=== PATIENT | female | born 1995 | race Caucasian/White ===

== ENCOUNTER 2019-11-26 12:40 | Emergency (ER) | payer OTHER, BC, SELFPAY ==
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
[2019-11-26 12:39] VITALS: BP 143/100; PULSE 79; RESP 17; TEMP 36.1; O2SAT 100
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
[2019-11-26] MEDS: ACETAMINOPHEN 500 MG TABLET 1000 MG (14:23)
[2019-11-26] MEDS: CYCLOBENZAPRINE HCL 10 MG TABLET (14:23)
[2019-11-26 14:24] VITALS: BP 126/88; PULSE 88; RESP 17; O2SAT 97
--- NOTE | 2019-11-26 14:25 | PC.NURSE ---
vrbo tylenol 1000mg, flexeril [address] romeo
== END 2019-11-26 15:08 | disposition home or self-care (01) ==
PROVIDERS: Emergency Provider Emergency Medicine; PCP Obstetrics & Gynecology
DX: S09.90XA Unspecified injury of head, initial encounter (principal); J32.9 Chronic sinusitis, unspecified; V49.40XA Driver injured in collision with unspecified motor vehicles in traffic accident, initial encounter
CPT/HCPCS: 70450; 99284; A9270

== ENCOUNTER 2020-12-29 10:51 | Emergency (ER) | payer BC, SELFPAY ==
[2020-12-29 11:06] VITALS: BP 114/64; PULSE 85; RESP 18; TEMP 36.3; O2SAT 98
[2020-12-29 11:07] VITALS: BP 114/64; PULSE 85; RESP 18; TEMP 36.3; O2SAT 98
--- NOTE | 2020-12-29 11:23 | ED.FEMALEGU ---
HPI - Female Genitourinary General Chief complaint: Urogenital-Female Stated complaint: uti History of Present Illness HPI Narrative: This is a 25-year-old female that presented to urgent care with complaints of burning ,frequency, and urgency for the last 4 days. Patient does have a history of urinary tract infection. She has been taking Azo at home with no relief. The patient denies SOB, CP, palpitation, extremity numbness, lightheadedness, dizziness, abdominal pain, hematuria constipation, vaginal discharge, possible STD ,diarrhea, chills, or fever. Patient's UA culture negative will treat office symptoms along MD elicited complaint: dysuria and UTI Related Data Allergies Allergy/AdvReac Type Severity Reaction Status Date / Time No Known Allergies Allergy Verified 12/29/20 10:55 Review of Systems Review of Systems: A 14 organ system Review of Systems was performed and pertinent positives included in the HPI, otherwise remaining ROS is negative. [facility] Past Medical History Medical History Anxiety Depression Family History Family History (Updated 12/29/20 @ 11:28 by MIRANDA Ascencio) Other Family history non-contributory Social History Social History Alcohol intake: current Substance use: current Substance use type: marijuana Exam Narrative: GENERAL: This is a well-nourished, well-developed patient, in no apparent distress. HEAD: normocephalic, atraumatic. EYES: PERRL. Sclera clear/white. Vision is grossly intact. EARS: External ears normal, auditory canals clear and without drainage, TMs normal without perforation. Hearing grossly intact. NOSE: External nose normal with no obvious nasal discharge, nares without redness, no rhinorrhea. THROAT: Mucous membranes moist, posterior pharynx clear. NECK: Neck supple, non-tender without lymphadenopathy, masses or thyromegaly. CARDIOVASCULAR: Regular rate and rhythm without murmurs, gallops, or rubs. RESPIRATORY: Clear to auscultation. Breath sounds equal bilaterally. No wheezes, rales, or rhonchi. GASTROINTESTINAL: Abdomen soft, non-tender, nondistended. Bowel sounds are active. No hepato-splenomegaly, or palpable masses. No guarding. CVA negative SKIN: warm, intact with no suspicious lesions or rash, good texture and turgor. NEURO: awake, alert, and oriented to person, place and time. There were no obvious focal neurologic abnormalities. Steady gait EXTREMITIES: Normal range of motion. No edema. No calf tenderness. Negative Homans sign bilaterally. BACK: Nontender without deformity or crepitance. No flank tenderness. Course Course Emergency Course: Patient was discharged with Bactrim x7 days. UA culture pending. Patient treated office symptoms along Vital Signs Vital signs: Vital Signs Temperature 97.3 F L 12/29/20 11:06 Pulse Rate 85 12/29/20 11:06 Respiratory Rate 18 12/29/20 11:06 Blood Pressure 114/64 12/29/20 11:06 Pulse Oximetry 98 12/29/20 11:06 Temperature 97.3 F L 12/29/20 11:07 Pulse Rate 85 12/29/20 11:07 Respiratory Rate 18 12/29/20 11:07 Blood Pressure 114/64 12/29/20 11:07 Pulse Oximetry 98 12/29/20 11:07 MDM - Female Genitourinary Differential Diagnosis Differential diagnosis: Likely urinary tract infection, bacterial vaginosis and vaginitis Lab Data Labs: Urine Glucose Negative Reference Range: Negative Urine Bilirubin Negative Reference Range: Negative Urine Ketone Negative Reference Range: Negative Urine Specific Theodore 1.030 Reference Range:1.001-1.035 Urine Blood 3+
== END 2020-12-29 11:37 | disposition home or self-care (01) ==
PROVIDERS: Emergency Provider Nurse Practitioner
DX: N39.0 Urinary tract infection, site not specified (principal)
CPT/HCPCS: 81003; 87086; 99213; G0463

== ENCOUNTER 2021-02-10 18:00 | Emergency (ER) | payer BC, SELFPAY ==
[2021-02-10 18:20] VITALS: BP 109/65; PULSE 90; RESP 16; TEMP 36.8; O2SAT 98
--- NOTE | 2021-02-10 18:36 | ED.FEMALEGU ---
HPI - Female Genitourinary General Chief complaint: Urogenital-Female Stated complaint: STD Time Seen by Provider: 02/10/21 18:36 Source: patient Mode of arrival: ambulatory Limitations: no limitations History of Present Illness HPI Narrative: Talia Hernandez is a 25 yo female with no PMH who comes to the [facility] after finding her fianc? in bed with a stripper in the last couple of days. States she has had cloudy urine is concerned about potential STD and she does not know how long he has been cheating on her. She is being tested for STDs and UA done-probably not complaining of any abdominal pain or abnormal discharge Related Data Allergies Allergy/AdvReac Type Severity Reaction Status Date / Time No Known Allergies Allergy Verified 02/10/21 18:23 Review of Systems Review of Systems: CONSTITUTIONAL: Denies fever, chills, sweats. EYES: Denies visual changes, redness, discharge. ENT: Denies rhinorrhea, congestion, sore throat, otalgia. CARDIOVASCULAR: Denies chest pain, palpitations, edema. RESPIRATORY: Denies dyspnea, wheezing, cough GASTROINTESTINAL: Denies abdominal pain, nausea, vomiting, diarrhea. GENITOURINARY: Denies dysuria, hematuria, abnormal discharge SKIN: Denies rash or itching. NEUROLOGIC: Denies numbness, or focal weakness. PSYCHIATRIC: Denies anxiety or depression. STD check after finding fianc? with another woman PMFSH Past Medical History Medical History Anxiety Depression Family History Family History Other Family history non-contributory Social History Social History Alcohol intake: current Substance use: current Substance use type: marijuana Comments At time of signature, I agree with nursing past medical, surgical, social and family history. There is no relevant family history pertinent to the presenting complaint. Exam Narrative: GENERAL: This is a well-nourished, well-developed patient, in mild distress. HEAD: normocephalic, atraumatic. EYES: Sclera clear/white. Vision is grossly intact. EARS: External ears normal, auditory canals clear and without drainage, Hearing grossly intact. NOSE: External nose normal without nasal discharge, nares without redness, no rhinorrhea. THROAT: Mucous membranes moist, NECK: Neck supple, non-tender CARDIOVASCULAR: Regular rate and rhythm without murmurs, gallops, or rubs. RESPIRATORY: Clear to auscultation. Breath sounds equal bilaterally. No wheezes, rales, or rhonchi. GASTROINTESTINAL: Abdomen soft, non-tender, SKIN: warm, intact with no suspicious lesions or rash, good texture and turgor. NEURO: awake, alert, and oriented to person, place and time. There were no obvious focal neurologic abnormalities. EXTREMITIES: Normal range of motion. BACK: Nontender without deformity Course Course Emergency Course: Patient here because of cloudy urine and finding fianc? with another woman and so he wants to be checked for STDs UA shows trace leukocyte esterase we will treat Given Rocephin and doxycycline x1 week-urine specimen sent for analysis Vital Signs Vital signs: Vital Signs Temperature 98.3 F 02/10/21 18:20 Pulse Rate 90 02/10/21 18:20 Respiratory Rate 16 02/10/21 18:20 Blood Pressure 109/65 02/10/21 18:20 Pulse Oximetry 98 02/10/21 18:20 Temperature 98.3 F 02/10/21 18:20 Pulse Rate 90 02/10/21 18:20 Respiratory Rate 16 02/10/21 18:20 Blood Pressure 109/65 02/10/21 18:20 Pulse Oximetry 98 02/10/21 18:20 MDM - Female Genitourinary Differential Diagnosis Differential diagnosis: Likely urinary tract infection and other (GC chlamydia versus vaginitis versus bacterial vaginosis) Lab Data Labs: Lab Results 02/10/21 Range/Units 18:30 C.trachomatis RNA (TMA) Pending N.gonorrhoeae RNA (TMA) Pending T. vaginalis Amp RNA Pend
[2021-02-10] MEDS: cefTRIAXone 500 MG VIAL IM (18:57)
[2021-02-10] MEDS: LIDOCAINE HCL 1% LOCAL INJ 20 ML VIAL 2.5 ML INFILTRATE (18:57)
== END 2021-02-10 19:20 | disposition home or self-care (01) ==
PROVIDERS: Emergency Provider Nurse Practitioner
DX: Z20.2 Contact with and (suspected) exposure to infections with a predominantly sexual mode of transmission (principal); N30.01 Acute cystitis with hematuria
CPT/HCPCS: 81003; 87086; 87088; 87491; 87591; 87661; 96372; 99214; G0463; J0696

== ENCOUNTER 2021-06-19 07:40 | Emergency (ER) | payer BC, SELFPAY ==
[2021-06-19] VITALS (14 sets, daily range): BP systolic 83–112; BP diastolic 60–79; PULSE 60–93; RESP 10–18; TEMP 37.1; O2SAT 98–100
--- NOTE | ~2021-06-19 | XR_ITS ---
EXAMINATION: XR chest 1V portable EXAM DATE: 06/19/2021 08:03 INDICATION: TECHNIQUE: Portable AP frontal chest x-ray was obtained. Comparison is made to prior examination from 12/16/2018. FINDINGS: The lungs are clear. There are no pleural effusions. The cardiomediastinal silhouette is within normal limits. There is no pneumothorax suspected. The bones and soft tissues are unremarkab le. IMPRESSION: No acute cardiopulmonary findings. Reviewed, dictated and finalized at location A. DCAST CHECKER
--- NOTE | 2021-06-19 07:49 | PC.NURSE ---
Dr. Whelan at bedside to assess patient.
[2021-06-19] MEDS: SODIUM CHLORIDE 0.9% IV 1,000 ML 999 ML IV CONT (08:07)
[2021-06-19] MEDS: KETOROLAC 30 MG/ML VIAL (*BKC) IV PUSH (08:09)
[2021-06-19 08:20] LABS: Basophils Percent Auto 0.5 % (0.2-1.2); Eosinophils Absolute Auto 0.3 K/mm3 (0-0.3); Eosinophils Percent Auto 5.2 % (0-4.4); Hematocrit 43.2 % (37.0-47.0); Hemoglobin 14.6 g/dL (12.0-15.0); Immature Granulocyte Absolute 0.01 K/mm3 (0.00-0.031); Immature Granulocyte Percent A 0.2 % (0-0.5); Lymphocytes Absolute Auto 0.91 K/mm3 (0.9-3.2); Lymphocytes Percent Auto 16.4 % (18.3-44.2); Mean Corpuscular HGB Conc 33.8 g/dl (32-36); Mean Corpuscular Hemoglobin 30.2 pg (26-34); Mean Corpuscular Volume 89.4 fl (80-100); Mean Platelet Volume 9.5 fl (7.4-10.4); Monocytes Absolute Auto 0.5 K/mm3 (0.1-0.6); Monocytes Percent Auto 8.1 % (2.6-8.5); Neutrophils Absolute Auto 3.9 K/mm3 (1.3-6.7); Neutrophils Percent Auto 69.6 % (45.5-73.1); Platelet Count Result 258 k/mm3 (150-375); Red Blood Count 4.83 M/mm3 (4.2-5.4); Red Cell Distribution Width 12.8 % (11.5-14.5); White Blood Count 5.6 K/mm3 (4.5-10.0)
[2021-06-19] MEDS: ONDANSETRON INJ 4 MG/2 ML VIAL IV PUSH (08:26)
[2021-06-19 08:28] LABS: Anion Gap 5 mmol/L (8-16); Blood Urea Nitrogen 11 mg/dL (7-17); Calcium 8.6 mg/dL (8.4-10.2); Carbon Dioxide 25 mmol/L (22-30); Chloride 105 mmol/L (98-107); Estimated CRCL calculation 117 ml/min; Estimated Glomerular Filt Rate > 60; Glucose 102 mg/dL (65-110); Potassium 4.2 mmol/L (3.4-5.0); Sodium 135 mmol/L (137-145)
[2021-06-19 08:32] LABS: D Dimer 0.46 ug/mL (<0.48)
--- NOTE | 2021-06-19 10:00 | ED.GENADULT ---
HPI - General Adult General Chief complaint: Headache Stated complaint: Multiple Complaints Time Seen by Provider: 06/19/21 07:46 History of Present Illness HPI narrative: Patient is a 25-year-old female who presents ER with multiple issues. Patient works at a local hospital. Over the last day she has developed fever as well as body aches. She has had some cough. She has mild headache. She is also been having diarrhea. No loss of taste or smell. She has not been tested for Covid. She is not taking any medications to help with her symptoms. Related Data Allergies Allergy/AdvReac Type Severity Reaction Status Date / Time No Known Allergies Allergy Verified 02/10/21 18:23 Review of Systems Review of Systems: All systems reviewed & are unremarkable except as noted in HPI and below Constitutional: Constitutional: Denies chills, Reports fatigue and Reports fever(s) ENT: Reports nasal congestion and Reports sore throat Cardiovascular: Cardiovascular: Denies chest pain, Denies rapid heart rate and Denies radiating jaw, neck or arm pain Respiratory: Respiratory: Denies chest congestion, Reports cough, Reports dyspnea and Denies wheezing Gastrointestinal: Gastrointestinal: Denies abdominal pain, Reports diarrhea, Reports nausea and Denies vomiting Genitourinary: Genitourinary: Denies nocturia, Denies dysuria and Denies flank pain Neurologic: Reports headache(s), Denies focal weakness and Denies numbness PMFSH Past Medical History Medical History (Updated 06/19/21 @ 11:02 by Kana Whelan MD) Anxiety Depression Surgical History Surgical History (Updated 06/19/21 @ 10:02 by Kana Whelan MD) No pertinent past surgical history Family History Family History Other Family history non-contributory Social History Social History Alcohol intake: current Substance use: current Substance use type: marijuana Exam Narrative: GENERAL: Well-appearing, well-nourished, and in no acute distress. HEAD: Normocephalic, atraumatic. ENT: Mucous membranes moist. CHEST: Clear to auscultation. No respiratory distress. HEART: Regular rate and rhythm. Normal peripheral pulses. ABDOMEN: Soft, nontender, nondistended. EXTREMITIES: Normal range of motion. No edema. SKIN: Warm, dry, no rash. NEURO: Alert and oriented x3. PSYCH: Normal mood and affect. Course Course Emergency Course: Pain decreased after Tylenol and Toradol. Informed results. Discharge home. Vital Signs Vital signs: Vital Signs Temperature 98.8 F 06/19/21 08:13 Pulse Rate 88 06/19/21 08:13 Respiratory Rate 12 06/19/21 08:13 Blood Pressure 112/79 06/19/21 08:13 Pulse Oximetry 98 06/19/21 08:13 Temperature 98.8 F 06/19/21 08:13 Pulse Rate 85 06/19/21 10:46 Respiratory Rate 14 06/19/21 10:46 Blood Pressure 109/70 06/19/21 10:46 Pulse Oximetry 100 06/19/21 10:46 Medical Decision Making Vital Signs Vital Signs: Vital Signs Temperature 98.8 F 06/19/21 08:13 Pulse Rate 88 06/19/21 08:13 Respiratory Rate 12 06/19/21 08:13 Blood Pressure 112/79 06/19/21 08:13 Pulse Oximetry 98 06/19/21 08:13 Temperature 98.8 F 06/19/21 08:13 Pulse Rate 85 06/19/21 10:46 Respiratory Rate 14 06/19/21 10:46 Blood Pressure 109/70 06/19/21 10:46 Pulse Oximetry 100 06/19/21 10:46 Lab Data Result diagrams: 06/19/21 07:59 06/19/21 07:59 Labs: Lab Results 06/19/21 06/19/21 06/19/21 Range/Units 07:59 07:59 07:59 WBC 5.6 (4.5-10.0) K/mm3 RBC 4.83 (4.2-5.4) M/mm3 Hgb 14.6 (12.0-15.0) g/dL Hct 43.2 (37.0-47.0) % MCV 89.4 (80-100) fl MCH 30.2 (26-34) pg MCHC 33.8 (32-36) g/dl RDW 12.8 (11.5-14.5) % Plt Count 258 (150-375) k/mm3 MPV 9.5 (7.4-10.4) fl Immature Gran % (Auto) 0.2 (0-0.5) %
--- NOTE | 2021-06-19 10:29 | PC.NURSE ---
Pt resting in stretcher. Tylenol infusion complete. Pt reports some improvement in [place] with current pain 09/04. VSS. Awaiting disposition. Will continue to monitor.
[2021-06-19 17:34] LABS: SARS-CoV-2 RNA PCR Negative
== END 2021-06-19 11:25 | disposition home or self-care (01) ==
PROVIDERS: Emergency Provider Emergency Medicine
DX: B34.9 Viral infection, unspecified (principal); Z20.822 Contact with and (suspected) exposure to COVID-19
CPT/HCPCS: 36415; 71045; 80048; 85025; 85380; 96361; 96365; 96375; 99284; C9803; J0131; J1885; J2405; J7030; U0003; U0005

== ENCOUNTER 2021-08-20 09:03 | Outpatient (CLI) | payer BC, SELFPAY ==
--- NOTE | ~2021-08-20 | US_ITS ---
EXAMINATION: US OB <= 14 weeks fetus DATE: 08/20/2021 09:38 INDICATION: Vaginal bleeding during first trimester TECHNIQUE: Real-time pelvic ultrasound utilizing both a transvaginal and transabdominal probe was pe rformed. The interpreting radiologist was not present for the study. COMPARISON: None. FINDINGS: The uterus measures 13.0 x 8.2 x 5.9 cm. There is an intrauterine gestational sac.A single fetus is identified. The crown rump length measures 2.6 cm, which correlates with an estimated gestational age of 9 weeks and 2 days. heart motion is identified measuring 180 beats per minute (bpm) by M-mo de Doppler. There is a 2.5 x 1.6 x 1.5 cm anechoic/hypoechoic subchorionic hematoma along the right f undal margin of the gestational sac. The right ovary measures 2.7 x 2.5 x 2.0 cm. The left ovary measures 2.7 x 1.9 x 1.9 cm. Vascular sia w identified at both ovaries on color Doppler There is no free fluid in the pelvis. IMPRESSION: 1. Single living fetus with heart rate of 180 bpm. 2. Gestational age by ultrasound of 9 weeks 2 day(s) +/- 6 day(s) with ultrasound estimated date of delivery (CONI) of 03/23/2022. 3. Small subchorionic hematoma. Reviewed, dictated and finalized at location B. IMPRESSION: 1. Single living fetus with heart rate of 180 bpm. 2. Gestational age by ultrasound of 9 weeks 2 day(s) +/- 6 day(s) with ultraso und estimated date of delivery (CONI) of 03/23/2022. 3. Small subchorionic hematoma.
== END 2021-08-20 09:04 | disposition home or self-care (01) ==
LOC: ANHIMG 09:07
PROVIDERS: Visit Provider Obstetrics & Gynecology
DX: O20.0 Threatened abortion (principal); Z3A.00 Weeks of gestation of pregnancy not specified
CPT/HCPCS: 76801

== ENCOUNTER 2021-09-06 10:30 | Outpatient (CLI) | payer BC, SELFPAY ==
--- NOTE | ~2021-09-06 | US_ITS ---
EXAMINATION: US OB <= 14 weeks fetus DATE: 09/06/2021 11:20 INDICATION: Threatened . Subchorionic hematoma. TECHNIQUE: Real-time pelvic ultrasound utilizing transabdominal probe was performed. The pippa perez radiologist was not present for the study. COMPARISON: None. FINDINGS: There is a single living fetus with crown rump length measuring 5.2 cm which is concordant within 1 d ay of the previously estimated gestational age of 11 weeks and 5 days. heart motion is identifi ed measuring 148 beats per minute (bpm) by M-mode Doppler. No significant change in a small subchorio robert hematoma at the fundus which measures 2.8 x 1.0 x 2.3 cm, previously 2.5 x 1.4 x 1.6. Although no t identified and specifically imaged and measured by the logistics clerk, and the cine images there appea rs to be a second small subchorionic hematoma measuring 3.0 x 0.6 cm towards the inferior cervical si de of the gestational sac. The right ovary measures 2.8 x 1.6 x 2.3 cm. The left ovary measures 2.8 x 2.2 x 1.5 cm. Vascular sia w identified in both ovaries on color Doppler. There is no free fluid in the pelvis. IMPRESSION: 1. Single living fetus with heart rate of 148 bpm. 2. [place]-rump length of 5.2 cm which is concordant within 1 day of the previously estimated gestation al age by ultrasound of 11 weeks 5 day(s) with ultrasound estimated date of delivery (CONI) of 022. 3. Unchanged small subchorionic hematoma near the fundus with second new small subchorionic hematoma along the cervical side of the gestational sac. Reviewed, dictated and finalized at location A. IMPRESSION: 1. Single living fetus with heart rate of 148 bpm. 2. [place]-rump length of 5.2 cm which is concordant within 1 day of the previous ly estimated gestational age by ultrasound of 11 weeks 5 day(s) with ultrasound estimated date of delivery (CONI) of 03/23/2022. 3. Unchanged small subchorionic hematoma near the fundus with second new small subchorionic hematoma along the cervical side of the gestational sac.
== END 2021-09-06 10:31 | disposition home or self-care (01) ==
PROVIDERS: Visit Provider Obstetrics & Gynecology
DX: O20.0 Threatened abortion (principal); Z3A.11 11 weeks gestation of pregnancy
CPT/HCPCS: 76801

== ENCOUNTER 2021-10-01 14:46 | Outpatient (CLI) | payer BC, SELFPAY ==
[2021-10-01 15:37] LABS: Basophils Absolute Auto 0.1 K/mm3 (0.0-0.1); Basophils Percent Auto 0.5 % (0.2-1.2); Eosinophils Absolute Auto 0.2 K/mm3 (0-0.3); Eosinophils Percent Auto 2.2 % (0-4.4); Hematocrit 36.9 % (37.0-47.0); Hemoglobin 12.5 g/dL (12.0-15.0); Immature Granulocyte Absolute 0.05 K/mm3 (0.00-0.031); Immature Granulocyte Percent A 0.5 % (0-0.5); Lymphocytes Absolute Auto 1.74 K/mm3 (0.9-3.2); Lymphocytes Percent Auto 15.9 % (18.3-44.2); Mean Corpuscular HGB Conc 33.9 g/dl (32-36); Mean Corpuscular Volume 85.6 fl (80-100); Mean Platelet Volume 10.1 fl (7.4-10.4); Monocytes Absolute Auto 0.7 K/mm3 (0.1-0.6); Monocytes Percent Auto 6.1 % (2.6-8.5); Neutrophils Absolute Auto 8.2 K/mm3 (1.3-6.7); Neutrophils Percent Auto 74.8 % (45.5-73.1); Platelet Count Result 292 k/mm3 (150-375); Red Blood Count 4.31 M/mm3 (4.2-5.4); Red Cell Distribution Width 12.8 % (11.5-14.5)
[2021-10-01 16:35] LABS: HIV 1/2 Ab P24 Ag Result Negative (Negative)
[2021-10-01 16:49] LABS: Hepatitis B Surface Antigen Negative (Negative)
[2021-10-02 14:16] LABS: Rapid Plasma Reagin Non-Reactive (NonReactive)
[2021-10-05 16:56] LABS: CMV IgG Antibody <0.60 U/mL (<0.60)
== END 2021-10-01 14:47 | disposition home or self-care (01) ==
LOC: ANHLAB 14:48
PROVIDERS: Visit Provider Obstetrics & Gynecology
DX: Z34.90 Encounter for supervision of normal pregnancy, unspecified, unspecified trimester (principal); Z3A.00 Weeks of gestation of pregnancy not specified
CPT/HCPCS: 36415; 85025; 86592; 86644; 86703; 86747; 86762; 86787; 86850; 86900; 86901; 87086; 87088; 87340; G0432

== ENCOUNTER 2021-11-19 12:35 | Outpatient (CLI) | payer OTHER, SELFPAY | END 2021-11-19 12:36 | disposition home or self-care (01) | LOC: ANHLAB 12:36 | PROVIDERS: Visit Provider Obstetrics & Gynecology | DX: O23.40 Unspecified infection of urinary tract in pregnancy, unspecified trimester (principal); Z3A.00 Weeks of gestation of pregnancy not specified | CPT/HCPCS: 87086; 87088 ==

== ENCOUNTER 2021-12-29 10:49 | Outpatient (CLI) | payer OTHER, SELFPAY ==
[2021-12-29 12:03] LABS: Basophils Absolute Auto 0.1 K/mm3 (0.0-0.1); Basophils Percent Auto 0.8 % (0.2-1.2); Eosinophils Absolute Auto 0.2 K/mm3 (0-0.3); Eosinophils Percent Auto 2.5 % (0-4.4); Hematocrit 35.2 % (37.0-47.0); Hemoglobin 11.6 g/dL (12.0-15.0); Immature Granulocyte Absolute 0.07 K/mm3 (0.00-0.031); Immature Granulocyte Percent A 0.9 % (0-0.5); Lymphocytes Absolute Auto 1.31 K/mm3 (0.9-3.2); Lymphocytes Percent Auto 16.6 % (18.3-44.2); Mean Corpuscular Hemoglobin 28.9 pg (26-34); Mean Corpuscular Volume 87.6 fl (80-100); Mean Platelet Volume 9.1 fl (7.4-10.4); Monocytes Absolute Auto 0.6 K/mm3 (0.1-0.6); Monocytes Percent Auto 7.7 % (2.6-8.5); Neutrophils Absolute Auto 5.7 K/mm3 (1.3-6.7); Neutrophils Percent Auto 71.5 % (45.5-73.1); Platelet Count Result 255 k/mm3 (150-375); Red Blood Count 4.02 M/mm3 (4.2-5.4); Red Cell Distribution Width 13.4 % (11.5-14.5); White Blood Count 7.9 K/mm3 (4.5-10.0)
[2021-12-29 12:14] LABS: Glucose 1 Hour PP 50gm Dose 115 mg/dL
[2021-12-29 12:53] LABS: HIV 1/2 Ab P24 Ag Result Negative (Negative)
== END 2021-12-29 10:50 | disposition home or self-care (01) ==
LOC: ANHLAB 10:51
PROVIDERS: Visit Provider Obstetrics & Gynecology
DX: Z34.90 Encounter for supervision of normal pregnancy, unspecified, unspecified trimester (principal); R35.0 Frequency of micturition; Z3A.00 Weeks of gestation of pregnancy not specified
CPT/HCPCS: 36415; 82947; 85025; 86703; 87086; 87088; G0432

== ENCOUNTER 2022-01-19 22:01 | Observation (INO) | payer OTHER, SELFPAY ==
[2022-01-19] VITALS (13 sets, daily range): BP systolic 110–117; BP diastolic 69–70; PULSE 70–103; O2SAT 93–100; BMI 26.2
--- NOTE | 2022-01-19 22:38 | PC.NURSE ---
[phone] Charles through the answering service.
--- NOTE | 2022-01-19 22:43 | PC.NURSE ---
Dr. Charles responded to page. report given. order received to give Terbutaline up to 3 doses and check cervix. will continue with oral hydrations and monitor. will call if questions/concerns.
[2022-01-19] MEDS: TERBUTALINE SULFATE 1 MG/ML VIAL 0.25 MG SUB-Q (22:55)
--- NOTE | 2022-01-19 23:51 | OBADM ---
This patient, Talia Hernandez, admitted to the OB room OB Post 115 for observation. Patient/family oriented to hospital policies and general routines including ID bracelet, bed and alarms, visiting hours, pain management, procedures, bathroom and other care routines, personal items, smoking policy, room service/diet, and visiting hours. Patient/Family are encouraged to report perceived risks to care and to ask questions if they do not understand what they are told or what they should do.
--- NOTE | 2022-01-23 07:23 | PM.OBTRLD ---
OB - Triage/Final Diagnosis Visit Information Reason for evaluation: threatened labor Comments/Additional reasons for admission: I have assessed the risk for this patient, Talia Hernandez, and determined that she would benefit from observation care.
== END 2022-01-20 00:06 | disposition home or self-care (01) ==
PROVIDERS: Admitting Provider Obstetrics & Gynecology; Visit Provider Obstetrics & Gynecology
DX: O47.03 False labor before 37 completed weeks of gestation, third trimester (principal); Z3A.31 31 weeks gestation of pregnancy
CPT/HCPCS: 96372; G0378; G0379; J3105

== ENCOUNTER 2022-02-27 18:54 | Outpatient (RCR) | payer OTHER, SELFPAY ==
--- NOTE | 2022-02-27 20:24 | PC.NURSE ---
2008- called Dr. Vallejo- pt came in with c/o DFM . FHT reviewed. some contractions noted at beginning of tracing, resolved with PO fluids none felt by pt. order received to d/c pt home with instructions on when to call or return to L&D.
--- NOTE | 2022-02-28 07:53 | PM.OBTRLD ---
OB - Triage/Final Diagnosis Visit Information Date of evaluation: 02/27/22 Reason for evaluation: decreased movement Comments/Additional reasons for admission: I have assessed the risk for this patient, Talia Haris Johnsonbetzy, and determined that she would benefit from observation care.
== END 2022-03-29 07:41 | disposition home or self-care (01) ==
LOC: ANHOBOP 18:54
PROVIDERS: Visit Provider Obstetrics & Gynecology
DX: O36.8130 Decreased fetal movements, third trimester, not applicable or unspecified (principal); Z3A.36 36 weeks gestation of pregnancy
CPT/HCPCS: 59025

== ENCOUNTER 2022-03-07 08:08 | Emergency (ER) | payer OTHER, SELFPAY ==
--- NOTE | 2022-03-07 08:10 | ED.URI ---
HPI - URI/Sore Throat General Chief Complaint: Upper Respiratory Infection Stated Complaint: uri Time Seen by Provider: 03/07/22 08:10 Source: patient Mode of arrival: ambulatory Limitations: no limitations History of Present Illness HPI Narrative: Talia is a 26-year-old female patient presenting to clinic today with complaints of possible upper respiratory infection X2 days. She report no fever or chills. States she has runny nose, cough, congestion with green nasal drainage. Patient is 37 weeks and is to be induced in 12 days MD elicited complaint: sore throat and nasal congestion Related Data Home Medications Medication Instructions Recorded Confirmed [id number] fum 65 mg 1 pkg PO DAILY 08/09/21 03/07/22 iron-folic acid 1 mg-dha 250 mg oral amara Allergies Allergy/AdvReac Type Severity Reaction Status Date / Time No Known Allergies Allergy Verified 03/06/22 15:53 Review of Systems Review of Systems: Pertinent positives per HPI. Patient denies any fever, chills, rash, headache, visual changes, dizziness, cough, shortness of breath, chest pain, palpitations, nausea, vomiting, diarrhea, constipation, abdominal pain, or any urinary issues. [facility] Past Medical History Medical History Anxiety Depression Encounter for screening examination for sexually transmitted disease Suppression of menstruation Surgical History Surgical History History of gynecological procedure LEEP History of tonsillectomy No pertinent past surgical history Family History Family History Grandparent Diabetes mellitus Acute myocardial infarction Hypertension Chronic obstructive pulmonary disease Other Family history non-contributory Social History Social History Smoking status: Former smoker Tobacco type: cigarettes Smoking end date: 05/30/21 Alcohol intake: current Alcohol use details: casual Substance use: current Substance use type: marijuana Other substance usage details: daily Last use: LAST TIME 02/18/22 Additional living arrangements comments: single 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 There is no relevant family history pertinent to the patient complaint. Exam Narrative: General: Well-developed, well nourished, in no apparent distress Head: Normocephalic, atraumatic Eyes: Pupils equally round and reactive to light bilaterally, EOM intact, sclera and conjunctive clear, no discharge, lids normal Ears: TMs intact and clear, ear canals clear, no drainage, grossly hearing normal. Nose: Nares patent, clear discharge, no inflammation, no sinus tenderness. Mouth: Oral pharynx without lesions or masses, good dentition, MMM. Postnasal drip Neck: Supple, trachea midline, no enlargement of anterior or posterior cervical nodes, no thyroid masses or goiter palpable. Cardio: Regular rate and rhythm, s1 and s2 normal, no murmur appreciated. Resp: Clear to auscultation bilaterally, no rhonchi, rales, wheezing or rubs Course Course Emergency Course: Portions of this record may have been created with voice recognition software. Level of Care: Express Care Visit Vital Signs Vital signs: Vital Signs Temperature 36.2 C L 03/07/22 08:22 Pulse Rate 95 03/07/22 08:22 Respiratory Rate 16 03/07/22 08:22 Blood Pressure 119/71 03/07/22 08:22 Pulse Oximetry 99 03/07/22 08:22 Oxygen Delivery Room Air
[2022-03-07 08:22] VITALS: BP 119/71; PULSE 95; RESP 16; TEMP 36.2; O2SAT 99
== END 2022-03-07 08:52 | disposition home or self-care (01) ==
PROVIDERS: Emergency Provider Nurse Practitioner Family
DX: O99.513 Diseases of the respiratory system complicating pregnancy, third trimester (principal); Z3A.37 37 weeks gestation of pregnancy; J06.9 Acute upper respiratory infection, unspecified; Z20.818 Contact with and (suspected) exposure to other bacterial communicable diseases; Z87.891 Personal history of nicotine dependence
CPT/HCPCS: 99213; G0463

== ENCOUNTER 2022-03-18 04:56 | Inpatient (IN) | payer OTHER, SELFPAY ==
[2022-03-18] VITALS (161 sets, daily range): BP systolic 84–156; BP diastolic 54–110; PULSE 57–157; RESP 18; TEMP 36.5–37.3; O2SAT 95–100; BMI 27.6
--- NOTE | 2022-03-18 05:30 | LDADM ---
This patient, Talia Hernandez, was admitted to Labor/Delivery/Recovery 103 on 03/18/22 at 04:56. Plans for labor, pain management and were discussed with patient. Patient/family oriented to hospital policies and general routines including ID bracelet, bed and alarms, visiting hours, pain management, procedures, bathroom and other care routines, personal items, smoking policy, room service/diet and guest tray routines, security routines, and visiting hours. Patient/Family are encouraged to report perceived risks to care and to ask questions if they do not understand what they are told or what they should do. See OBIX for further documentation.
[2022-03-18] MEDS: LACTATED RINGERS 1,000 ML 125 ML IV CONT ×3 (06:00→16:17)
[2022-03-18] MEDS: OXYTOCIN 30 UNITS/NS 500 ML 30 UNITS/500 ML BAG IV CONT (06:00)
[2022-03-18 06:05] LABS: Basophils Absolute Auto 0.1 K/mm3 (0.0-0.1); Basophils Percent Auto 0.9 % (0.2-1.2); Eosinophils Absolute Auto 0.2 K/mm3 (0-0.3); Eosinophils Percent Auto 1.8 % (0-4.4); Hematocrit 36.9 % (37.0-47.0); Hemoglobin 12.3 g/dL (12.0-15.0); Immature Granulocyte Absolute 0.06 K/mm3 (0.00-0.031); Immature Granulocyte Percent A 0.6 % (0-0.5); Lymphocytes Absolute Auto 2.21 K/mm3 (0.9-3.2); Mean Corpuscular HGB Conc 33.3 g/dl (32-36); Mean Corpuscular Hemoglobin 28.5 pg (26-34); Mean Corpuscular Volume 85.6 fl (80-100); Monocytes Absolute Auto 0.7 K/mm3 (0.1-0.6); Monocytes Percent Auto 6.2 % (2.6-8.5); Neutrophils Absolute Auto 7.3 K/mm3 (1.3-6.7); Neutrophils Percent Auto 69.5 % (45.5-73.1); Platelet Count Result 249 k/mm3 (150-375); Red Blood Count 4.31 M/mm3 (4.2-5.4); Red Cell Distribution Width 13.8 % (11.5-14.5); White Blood Count 10.5 K/mm3 (4.5-10.0)
[2022-03-18 06:43] LABS: Rapid Plasma Reagin Non-Reactive (NonReactive)
--- NOTE | 2022-03-18 07:07 | WPDOBADMIT ---
Obstetrics - Admit Note Admission Note: record reviewed. No pertinent additions to the history and/or any subsequent changes in the physical findings that are not consistent with the expected course of the were found. Additions to the history and/or subsequent changes in the physical findings follow. Talia linton a 26yo @ 39.2wks admitted for elective IOL - Anxiety/depression FHT's: 135/mod lexi/ + accels/ no decels - cat 1 TOCO: ctx's q4min Cervix: 2.5/50/-3 Membranes: AROM clear 0715 Pit: 6mU Pitocin per protocol GBS neg Anesthesia consult PRN pain
--- NOTE | 2022-03-18 08:29 | WPDANESEPP ---
Anes - Eval Pre Procedure Procedure: labor epidural Date/Time: 03/18/22 08:29 Preop Diagnosis: labor pain Pre Op Diagnosis: iol Patient Data Age: 26 Gender: F Height: 1.7 m Weight: 80 kg Last Vital Signs Pulse 91 03/18/22 08:15 BP 126/78 03/18/22 08:15 O2 Del Method Room Air 03/18/22 05:28 Allergies Allergy/AdvReac Type Severity Reaction Status Date / Time No Known Allergies Allergy Verified 03/13/22 16:36 Home Medications Medication Instructions Recorded Confirmed Type [id number] fum 65 mg 1 pkg PO DAILY 08/09/21 03/18/22 History iron-folic acid 1 mg-dha 250 mg oral amara pyridoxine (vitamin B6) 25 mg 25 mg PO TID #120 tabs 09/19/21 03/18/22 Rx tablet ferrous sulfate 325 mg (65 mg 325 mg PO DAILY #90 tabs 01/07/22 03/18/22 Rx iron) tablet amoxicillin 500 mg capsule 500 mg PO Q12H 10 days #20 caps 03/07/22 03/18/22 Rx amoxicillin 500 mg capsule 500 mg PO Q12H 10 days #20 caps 03/07/22 03/18/22 Rx Laboratory Tests 03/18/22 03/18/22 03/18/22 05:35 05:35 05:36 WBC 10.5 K/mm3 H K/mm3 (4.5-10.0) RBC 4.31 M/mm3 M/mm3 (4.2-5.4) Hgb 12.3 g/dL g/dL (12.0-15.0) Hct 36.9 % L % (37.0-47.0) MCV 85.6 fl fl (80-100) MCH 28.5 pg pg (26-34) MCHC 33.3 g/dl g/dl (32-36) RDW 13.8 % % (11.5-14.5) Plt Count 249 k/mm3 k/mm3 (150-375) MPV 10.0 fl fl (7.4-10.4) Immature Gran % (Auto) 0.6 % H % (0-0.5) Neut % (Auto) 69.5 % % (45.5-73.1) Lymph % (Auto) 21.0 % % (18.3-44.2) Dade % (Auto) 6.2 % % (2.6-8.5) Eos % (Auto) 1.8 % % (0-4.4) Baso % (Auto) 0.9 % % (0.2-1.2) Lymph # (Auto) 2.21 K/mm3 K/mm3 (0.9-3.2) Dade # (Auto) 0.7 K/mm3 H K/mm3 (0.1-0.6) Eos # (Auto) 0.2 K/mm3 K/mm3 (0-0.3) Baso # (Auto) 0.1 K/mm3 K/mm3 (0.0-0.1) Abs Immat Gran (auto) 0.06 K/mm3 H K/mm3 (0.00-0.031) Absolute Neuts (auto) 7.3 K/mm3 H K/mm3 (1.3-6.7) Absolute Nucleated RBC 0.0 K/mm3 K/mm3 (0.0-0.012) Nucleated RBC % 0.0 % % (0.0-0.2) RPR Non-reactive (NonReactive) Blood Type O Positive Antibody Screen Negative Patient hx anesthesia problems: none Family hx anesthesia problems: none Results Review: All pre-operative results and documents have been reviewed as part of the pre-operative evaluation. [facility] Past Medical History Medical History Anxiety Depression Encounter for screening examination for sexually transmitted disease Suppression of menstruation Surgical History Surgical History History of gynecological procedure LEEP History of tonsillectomy No pertinent past surgical history Family History Family History Grandparent Diabetes mellitus Acute myocardial infarction Hypertension Chronic obstructive pulmonary disease Other Family history non-contributory Social History Social History Smoking status: Former smoker Tobacco type: cigarettes Second hand tobacco smoke exposure: No Smoking end date: 05/30/21 Alcohol intake: current Alcohol use details: casual Substance use: current Substance use type: marijuana Other substance usage details: daily Last use: LAST TIME 02/18/22 Lack of Transportation: No Lack of Food: Never True Current Housing: I Have Housing Concerned About Future Housing: No Difficulty Paying Gas/Electric Bills: No Difficulty Paying for Meds: No Currently Unemployed: No Education: High School Diploma/GED Difficulty w/ Childcare or Family Care: No Additional living arrangements comments
--- NOTE | 2022-03-18 12:28 | PM.OBPNLAB ---
Pain Control Date/time seen: 03/18/22 12:28 Pain control: epidural Pelvic Exam Dilation (cm): 4 Effacement (%): 70 station: -2 Amniotic membrane status: Ruptured (AROM, clear 0720) Contractions Monitor mode: Internal Contraction frequency: 2 (-3) Status status: Category l Comments: occasional mild variable noted Assessment and Plan Pitocin rate (mU/min): 2 Assessment: induction ongoing Plan: continuous present management Comments: - continue increasing pitocin; IUPC placed this exam to better monitor contractions
[2022-03-18] MEDS: ONDANSETRON INJ 4 MG/2 ML VIAL IV PUSH (12:32)
[2022-03-18] MEDS: SODIUM CHLORIDE 0.9% IV 300 ML 600 ML I-UTERINE (15:06)
--- NOTE | 2022-03-18 17:33 | PM.OBPNLAB ---
Pain Control Date/time seen: 03/18/22 17:33 Pain control: epidural Pelvic Exam Dilation (cm): 7 Effacement (%): 80 station: -1 Amniotic membrane status: Ruptured (AROM, clear 0720) Contractions Monitor mode: Internal Contraction frequency: 2 (-3) Status status: Category ll Comments: having variables/earlies Assessment and Plan Pitocin rate (mU/min): 4 Assessment: active labor Plan: continuous present management Comments: - amnio-infusion going
--- NOTE | 2022-03-18 18:05 | P.PCNOB_ITS ---
OB - Delivery Note Procedure Delivery date: 03/18/22 Events: Elective Induction of Labor Intrapartal Events: Decelerations Induction method: Per Pitocin Protocol Delivery augmentation: Rupture of Membranes Delivery monitor: Internal FHT and Internal Uterine Route of delivery: Episiotomy description: None Laceration Description: Periurethral Specimen: No Quantitative Blood Loss (ml): 200 Anesthesia type: Epidural Disposition: Floor [place] Baby Date of : 03/18/22 Time of : 17:47 Weeks of gestation at delivery: 39 (.2) Infant gender: Female Weight (pounds): 7 Weight (ounces): 1 presentation: vertex Placenta delivery description: Expressed Cord Vessel Description: 3 Vessels, Nuchal Cord and Around Body score one minute: 8 score five minutes: 9 Narrative: Talia rapidly progressed from 7 cm to complete dilation. She vomited and large heart deceleration was noted and the nurse checked on the patient; head had been delivered spontaneously (14 minutes after cervical check noting she was 7cm). Nuchal cord was noted but delivered through. She easily delivered the infant's shoulders and body without complication (per nursing). The umbilical cord was clamped and cut. A segment of cord was collected for cord gases. The remaining cord blood was collected for typing. I then arrived at the bedside and with Pitocin running and gentle downward traction on the cord, the placenta delivered without complications. Bimanual massage was performed and good uterine tone with minimal bleeding was noted. She was examined and a left periurethral laceration was noted. It was repaired in the normal fashion using 3-0 Vicryl. Good uterine tone with minimal bleeding remained. Sponge, lap, instrument, and needle counts were correct at the end the procedure. Mom and baby were left bonding in the birthing suite in stable condition. [facility] Delivery Billing Delivery Delivery: Delivery Charge
--- NOTE | 2022-03-18 20:13 | ADMGEN ---
This patient, Talia Hernandez, was admitted to OB 2nd Floor Room 290-00. Patient/family oriented to hospital policies and general routines including ID bracelet, bed and alarms, visiting hours, pain management, procedures, bathroom and other care routines, personal items, smoking policy, room service/diet, and visiting hours. Information on how to activate the Rapid Response Team has been discussed. Patient/Family are encouraged to report perceived risks to care and to ask questions if they do not understand what they are told or what they should do.
[2022-03-18] MEDS: ACETAMINOPHEN 325 MG TABLET 650 MG PO (21:33)
[2022-03-18] MEDS: IBUPROFEN 600 MG TABLET PO (21:34)
[2022-03-19] VITALS: BP 105/61; PULSE 92; RESP 18; TEMP 36.9
[2022-03-19] MEDS: IBUPROFEN 600 MG TABLET PO ×3 (03:38→16:21)
[2022-03-19] MEDS: ACETAMINOPHEN 325 MG TABLET 650 MG PO ×2 (03:38→16:21)
[2022-03-19 03:54] VITALS: BP 103/60; PULSE 68; RESP 18; TEMP 36.6
[2022-03-19 05:42] LABS: Hematocrit 33.5 % (37.0-47.0); Hemoglobin 11.1 g/dL (12.0-15.0)
--- NOTE | 2022-03-19 07:21 | P.PNOB_ITS ---
OB - PN: Subj Subjective Date/time seen: 03/19/22 07:21 Narrative: PPD#1 Talia reports doing well today. 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 Her pain is controlled. She is tolerating regular diet, voiding, passing gas, and ambulating without issues. She is breast/bottle feeding. OB - PN: Obj Data Labs CBC & Chem 7: 03/19/22 03:34 Labs: Laboratory Results - last 24 hr 03/19/22 03:34 Hgb 11.1 L Hct 33.5 L OB - PN A/P Assessment and Plan (1) Normal vaginal delivery of third : Code(s): O80 - Encounter for full-term uncomplicated delivery Status: Acute Plan day: 1 Plan: routine care and discharge home (tomorrow AM) Comments: - Pelvic rest; take meds as prescribed - ER return precautions: fever, n/v/abd pain, bleeding, HTN Time Spent With Patient Time: Total time spent is greater than 50% in coordination of care (as documented) at patient's floor/unit and/or counseling patient: Review of Systems Constitutional: Constitutional: Denies chills, Denies fever(s) and Denies headache(s) Eyes: Eyes: Denies change in vision ENT: Denies dizziness and Denies headache(s) Cardiovascular: Cardiovascular: Denies chest pain, Denies palpitations and Denies dyspnea Respiratory: Respiratory: Denies cough and Denies dyspnea Gastrointestinal: Gastrointestinal: Denies nausea and Denies vomiting Neurologic: Denies dizziness and Denies headache(s) Endocrine: Endocrine: Denies palpitations Exam Const: General: cooperative, comfortable and no acute distress Orientation/consciousness: patient oriented x3 Resp: Effort & Inspection: normal respiratory effort Auscultation: clear to auscultation bilaterally Cardio: Rate: regular rate GI: Inspection: non-distended GI Palp: No abdominal tenderness and Yes Soft to palpation Auscultation: normal bowel sounds : Other: fundus firm Skin: General skin exam: normal color Neuro: General: patient oriented x3 Extrem: General: normal to inspection Psych: Appearance: grossly normal Affect: normal affect Attitude: cooperative
[2022-03-19 08:05] VITALS: BP 120/70; PULSE 65; RESP 18; TEMP 37.1; O2SAT 100
[2022-03-19] MEDS: DOCUSATE SODIUM 100 MG CAPSULE PO ×2 (08:42→16:21)
[2022-03-19] MEDS: MULTIVIT/MIN/PREN/FOL AC/IRON TABLET 1 TAB PO (08:43)
--- NOTE | 2022-03-19 11:19 | PC.NURSE ---
[id number] Introductions were made, then consulted with patient to assess needs related to . Mother led the conversation with her?plans to feed?her infant and the?experience so far. Resources provided for inpatient and outpatient services using mom/baby guide. Mother voiced understanding of information and requests assistance related to her not able to wake her to breastfeed. Mother states she wants to introduce the bottle. Risk and benefits were discussed regarding feeding options so mother can make an informed decision. RN demonstrated unwrapping, stimulating infant with massage touch, talking, position changes and burping. woke up and mother visualized the feeding cues. Infant latch optimally to the left breast using cross cradle positioning. Mother was shown how to visualize and listen for swallowing at the breast. Father of baby is actively assisting where he can to help mother with infant. Discussed the recommendations to not use cannabis or alcohol while . Risks were discussed regarding using cannabis and drinking alcohol. Benefits of were reviewed. Mother voiced understanding of the information, calling if she has difficulty latching her infant, waking her to breastfeed or there's discomfort/pain with . Reported to the primary RN.
--- NOTE | 2022-03-19 11:31 | WPDANLDPN2 ---
Anes-Prog Note L&D Date/Time: 03/19/22 11:31 Neuro status: Neuro function grossly intact. Vital Signs: Last Vital Signs Temp 37.1 C 03/19/22 08:05 Pulse 65 03/19/22 08:05 Resp 18 03/19/22 08:05 BP 120/70 03/19/22 08:05 Pulse Ox 100 03/19/22 08:05 O2 Del Method Room Air 03/19/22 07:40 Pain score (VAS): 0 I/O: Intake & Output 03/18/22 03/19/22 03/19/22 23:59 07:59 15:59 Intake Total 1000 Output Total 200 Balance 800 Patient feedback: Patient satisfied with anesthetic care.
[2022-03-19 12:10] VITALS: BP 116/65; PULSE 79; RESP 16; TEMP 37.6; O2SAT 99
[2022-03-19 16:00] VITALS: BP 109/71; PULSE 66; RESP 16; TEMP 37.1; O2SAT 99
[2022-03-19 18:40] VITALS: BP 129/59; PULSE 77; RESP 16; TEMP 36.8
[2022-03-20 07:30] VITALS: PULSE 72; RESP 18; O2SAT 99
[2022-03-20] MEDS: ACETAMINOPHEN 325 MG TABLET 650 MG PO (07:35)
[2022-03-20] MEDS: IBUPROFEN 600 MG TABLET PO (07:35)
--- NOTE | 2022-03-20 08:30 | PC.NURSE ---
PT introductions made and plan of care discussed per post , pain management, breast feeding, daily care activities and pending discharge to home. Pt sole recipient of such instructions. Instructions received per one to one discussion, mom baby care guide and demonstrations this shift. NO barriers to learning identified at this time. PT verbalized understanding of such care.
[2022-03-20 08:40] VITALS: BP 120/67; PULSE 72; RESP 18; TEMP 37.6; O2SAT 99
[2022-03-20] MEDS: LANOLIN (LANSINOH) 7.5 GM CREAM 1 APPLIC TOPICAL (10:39)
[2022-03-20] MEDS: MULTIVIT/MIN/PREN/FOL AC/IRON TABLET 1 TAB PO (10:39)
[2022-03-20] MEDS: DOCUSATE SODIUM 100 MG CAPSULE PO (10:40)
--- NOTE | 2022-03-20 11:15 | PC.NURSE ---
PT received discharge instructions per protocol and verbalized understanding of such care.
--- NOTE | 2022-03-20 11:50 | PC.NURSE ---
PT discharged to home ambulatory accompanied by both parents and taken to waiting car. Follow up appts confirmed
--- NOTE | 2022-03-24 16:19 | PM.OBDSVD ---
DS: Admitting Diagnosis Discharge Date 03/20/22 Admitting Diagnosis Elective induction of labor DS: Discharge Diagnosis Discharge Diagnosis (1) Normal vaginal delivery of third : Code(s): O80 - Encounter for full-term uncomplicated delivery Status: Acute OB - DS: Summary OB Procedures : Ultrasound OB Procedures Intrapartum: Spontaneous Vag Delivery OB Procedures: : None Peripartum Data Infant Delivery Method: Natural Vaginal Laceration Description: Periurethral Episiotomy description: None complications: none 1: Gender: Female Disposition of : home Status at Discharge Functional status at discharge: independent ambulation Overall status at discharge: patient is back to baseline Time Spent with Patient Time attestation: Total time spent providing and/or coordinating discharge services: Time spent: Less than 30 minutes Exam Const: General: cooperative, comfortable and no acute distress Orientation/consciousness: patient oriented x3 Resp: Effort & Inspection: normal respiratory effort Auscultation: clear to auscultation bilaterally Cardio: Rate: regular rate GI: Inspection: non-distended GI Palp: No abdominal tenderness and Yes Soft to palpation Auscultation: normal bowel sounds : Other: fundus firm Skin: General skin exam: normal color Neuro: General: patient oriented x3 Extrem: General: normal to inspection Psych: Appearance: grossly normal Affect: normal affect Attitude: cooperative Discharge Plan Discharge Attending physician on discharge: Aileen Toribio Consulting providers: Jaelyn Finn ; Alessandra Garcia Discharging Clinician: Aileen Toribio Anticipated Discharge Date/Time: 03/20/22 08:00 Patient Disposition: Home, Self-Care Activity: pelvic rest Diet: regular Discharge Instructions: Education: Mom and Baby Guide Given to: Mother Follow-Up: Call your delivering provider's office for an appointment to be seen in: 4 Weeks Mom and baby should come to the [facility] for the follow-up appointment. Appointment Date/Time: March 22, 2022 at 2:30 pm What to expect at your follow-up visit: Blood Pressure Check Call [phone] if you are unable to keep your appointment time. BREAST CARE: * Wear a snug supportive bra. * For engorgement discomfort: Breast Feeding: * Apply warm moist washcloths * Express milk as needed to relieve engorgement * Wear loose clothing Bottle Feeding: * May apply ice packs * For sore nipples: * Identify correct latch-on * Apply warm moist washcloths before and after nursing * Air dry nipples after nursing * May apply Lansinoh cream to nipples PERINEAL CARE: * Until bleeding stops, use your rufus bottle after urinating * Change your pad frequently throughout the day * You may take sitz baths several times a day (fill your bathtub with warm water and soak for 20 minutes.) Do NOT bathe in the water * No tub baths until seen by your physician - You may shower ACTIVITY: * Rest as much as possible. * Do not exercise or lift anything heavier than your baby (such as laundry or other children.) * Avoid stairs or driving as much as possible. * Do not put anything into the vagina. No douching, tampons, or sexual activity until seen by physician. NOTIFY PHYSICIAN IF YOU HAVE ANY QUESTIONS OR IF ANY OF THE FOLLOWING SYMPTOMS OCCUR: * If your perineum becomes red, swollen, or more painful than what you have experienced in the hospital. * If your vaginal bleeding becomes foul smelling. * If your vaginal bleeding becomes more heavy than a period or if your bleeding changes from pink to bright red. However, you may pass an occasional walnut-sized clot once or twice for the first week . * If you experience a sharp, shooting pain in you calves.
== END 2022-03-20 11:50 | disposition home or self-care (01) | DRG 560 ==
LOC: ANHLDR 04:58 → ANHOB2 20:12
PROVIDERS: Admitting Provider Obstetrics & Gynecology; Visit Provider Obstetrics & Gynecology
DX: O76 Abnormality in fetal heart rate and rhythm complicating labor and delivery (principal); O69.81X0 Labor and delivery complicated by cord around neck, without compression, not applicable or unspecified; O71.82 Other specified trauma to perineum and vulva; Z3A.39 39 weeks gestation of pregnancy; Z37.0 Single live birth
CPT/HCPCS: 36415; 85014; 85018; 85025; 86592; 86850; 86900; 86901; A9270; J2405; J2590; J2795; J7030; J7120